=== PATIENT | male | born 1985 | race Hispanic/Latino ===

== ENCOUNTER 2020-02-04 03:45 | Emergency (ER) | payer OTHER ==
[~2020-02-04] VITALS: Ht 180.3 cm; Wt 136.1 kg
[2020-02-04 04:00] VITALS: BP 137/76
--- NOTE | 2020-02-04 04:10 | ER.PDOC ---
General Chief Complaint: Chest Pain-Cardiac Nature Stated Complaint: SOB Time seen by MD: 04:00 Source: patient Exam Limitations: no limitations History of Present Illness Initial Comments right sided chest pain for one day, patient states has some palpitations also. no hx of dvt or pe, no cad. no back or abd pain no tearing pain, no cough or titus. patient did say he fell at work two days ago but the pain started one day ago. Severity/Quality: mild, sharp Radiation: no radiation Activities at Onset: other Prior CP/Workup: No Prior Chest Pain Nitro Today/Relief: No Nitro Taken Today Aspirin Today: No Aspirin Today Associated Symptoms: denies symptoms Allergies: Coded Allergies: diphenhydramine (Verified Allergy, Unknown, 02/04/20) red dye (Verified Allergy, Unknown, 02/04/20) Past Medical History Surgical History: appendectomy Social History Alcohol Use: occassionally Drug Use: none Constitutional: denies chills, denies fever Respiratory: denies cough Cardiovascular: chest pain; denies palpitations Gastrointestinal: denies abdominal pain Genitourinary: denies dysuria, denies flank pain Musculoskeletal: denies neck pain Skin: denies rash Psychiatric/Neurological: denies headache, denies paresthesia Physical Exam General Appearance: No Apparent Distress, WD/WN HEENT: PERRL/EOMI Neck: Non-Tender, Full Range of Motion Respiratory: lungs clear, normal breath sounds Cardiovascular: Normal Peripheral Pulses, Regular Rate, Rhythm Gastrointestinal: Non Tender Extremities: Normal Range of Motion, Non-Tender 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, No Motor/Sensory Deficits, Alert, Normal Mood/Affect Skin: Normal Color Results/Orders Results/Orders Vital Signs Date Time Temp Pulse Resp B/P (MAP) Pulse Ox O2 Delivery O2 Flow Rate FiO2 02/04/20 04:00 98.2 97 16 97 02/04/20 04:00 98.2 97 16 EKG/XRAY/CT/US EKG: NSR, no ST T wave changes ER DEPART Departure Time of Disposition: 05:01 Disposition: 01 HOME, SELF-CARE Impression: Primary Impression: Chest pain Condition: Stable Patient Instructions: Chest Pain (Nonspecific) Referrals: PCP,UNKNOWN (PCP) PRIMARY CARE PROVIDER KELSEY CUMMINS MD Additional Instructions: return for any worsening symptoms Duration or Time Spent with Pa: 15 FARAZ VILLA MD Feb 04, 2020 04:10
[2020-02-04 04:19] LABS: BASOPHIL % 0.3 % (0.0-0.2); EOSINOPHIL # 0.1 10^3/uL (0.0-0.2); EOSINOPHIL % 0.6 % (0.0-5.0); LYMPHOCYTES # 2.71 10^3/uL1 (1.0-4.8); MONOCYTES # 0.7 10^3/uL (0.3-0.8); MONOCYTES % 6.5 % (5.0-12.0); NEUTROPHIL # 7.3 10^3/uL (1.8-7.7); NEUTROPHILS % 67.5 % (41.0-85.0); PLATELET COUNT 221 10^3/uL (150-400)
--- NOTE | 2020-02-04 04:40 | DIREP ---
PROCEDURE:CHEST 1 VIEW COMPARISON:None. INDICATIONS:chest pain FINDINGS: LUNGS/PLEURA:No significant pulmonary parenchymal abnormalities. No effusions. VASCULATURE:Normal. Unremarkable pulmonary vasculature. CARDIAC:Normal. No cardiac silhouette abnormality or cardiomegaly. MEDIASTINUM:Normal. No visible mass or adenopathy. BONES:Normal. No fracture or visible bony lesion. OTHER:Negative. CONCLUSION:Normal examination. Dictated by: Davian Alarcon M.D. on 02/04/2020 at 04:38 AM
[2020-02-04 04:41] LABS: ALANINE AMINOTRANSFERASE(ML) 53 U/L (12-78); ALKALINE PHOSPHATASE 118 U/L (50-136); ASPARTATE AMINO TRANSFERASE 19 U/L (0-35); CARBON DIOXIDE 27.9 mmol/L (20.0-32); GLUCOSE 99 mg/dL (70-110)
[2020-02-04 05:07] VITALS: BP 124/92
--- NOTE | 2020-02-04 06:44 | PCM.EKG ---
[facility] Test Date: 2020-02-04 Test Time: 04:07:17 Pat Name: JARED HELLER [id number]: Gender: M Chemical Dependency Attendant: LEISA : 1985 Requested By: FARAZ VILLA Order Number: [id number] Reading MD: Measurements Intervals [place] Rate: 79 P: 52 MT: 151 QRS: 77 QRSD: 84 T: 56 QT: 354 QTc: 406 Interpretive Statements Sinus rhythm No previous ECG available for comparison Please click the below link to view image of tracing.
== END 2020-02-04 05:10 | disposition home or self-care (01) ==
LOC: ER 03:45
DX: R07.9 Chest pain, unspecified (principal); R00.2 Palpitations; Z88.8 Allergy status to other drugs, medicaments and biological substances
CPT/HCPCS: 36415; 71045; 80053; 82550; 82553; 84484; 85025; 85379; 93005; 99285

== ENCOUNTER 2020-03-05 01:43 | Emergency (ER) | payer OTHER ==
[~2020-03-05] VITALS: Ht 180.3 cm; Wt 134.7 kg
[2020-03-05 01:58] VITALS: BP 145/73
--- NOTE | 2020-03-05 02:28 | ER.PDOC ---
General Chief Complaint: Requesting Medical Care Stated Complaint: LEG PAIN Time seen by MD: 02:23 Source: patient Exam Limitations: no limitations History of Present Illness Initial Comments Patient c/o sudden onset LLE pain tonight without injury. 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 No history of extended stasis recently or injury. Onset: just prior to arrival Recent Injury: No Context: concerned for possible DVT d/t history of same Where: home Severity: moderate Exacerbated By: walking movement Relieved By: rest Associated Symptoms: other (denies CP or SOB) Prior symptoms/Treatment: Similar symptoms previous (with DVT) Allergies: Coded Allergies: diphenhydramine (Verified Allergy, Unknown, 02/04/20) red dye (Verified Allergy, Unknown, 02/04/20) Past Medical History Medical History: other (DVT; denies history of clotting disorder) Surgical History: appendectomy Family History Significant Family History: no pertinent family hx (no familial history of clotting disorder) Social History Smoking: non-smoker Alcohol Use: occassionally Drug Use: none Review of Systems Constitutional: no symptoms reported EENTM: no symptoms reported Respiratory: no symptoms reported (denies SOB) Cardiovascular: no symptoms reported (denies CP) Gastrointestinal: no symptoms reported Genitourinary: no symptoms reported Musculoskeletal: see HPI (c/o LLE pain without history of injury) Skin: no symptoms reported Psychiatric/Neurological: no symptoms reported All Other Systems: Reviewed and Negative Physical Exam General Appearance: Alert, No Apparent Distress Lower Extremity: no pedal edema (no swelling, no pain on calf compression, no pain in calf on dorsiflexion of foot) Joint Exam: joints nml, nml ROM Vascular: no vascular compromise, pulses full/equal Neuro/Psych: sensation nml, motor nml, oriented x3 Skin: color nml, warm/dry, no rash Back/Neck: nml inspection EENT: eyes inspection nml Respiratory: no resp distress, breath sounds nml CVS: reg rate & rhythm, heart sounds nml Abdomen: non-tender, no organomegaly Results/Orders Results/Orders Orders - BROOKLYN ARREDONDO DO D-Dimer (03/05/20 02:27) Vital Signs Date Time Temp Pulse Resp B/P (MAP) Pulse Ox O2 Delivery O2 Flow Rate FiO2 03/05/20 03:08 97.9 77 16 129/77 (94) 95 Room Air 03/05/20 02:30 97.9 86 16 145/73 (97) 95 Room Air 03/05/20 01:58 97.9 86 16 145/73 (97) 95 Room Air 03/05/20 01:58 97.9 86 16 03/05/20 01:58 97.9 86 16 95 Laboratory Tests Test 03/05/20 02:43 D-Dimer 0.32 mg/L (0.19-0.49) Progress Progress Ddimer is WNL ER DEPART Departure Time of Disposition: 03:06 Disposition: 01 HOME, SELF-CARE Impression: Primary Impression: Leg pain, left Condition: Stable Referrals: PCP,UNKNOWN (PCP) PRIMARY CARE PROVIDER FARAZ WATSON MD Additional Instructions: Alternate Tylenol and Motrin per package instructions every 4 hours as needed for pain. Return to ER if symptoms worsen, chest pain, difficulty breathing, or for any emergent concerns. Follow up with doctor Watson next week for reevaluation. Duration or Time Spent with Pa: 15 min BROOKLYN ARREDONDO DO Mar 05, 2020 02:28
[2020-03-05 02:30] VITALS: BP 145/73
[2020-03-05 03:08] VITALS: BP 129/77
== END 2020-03-05 03:10 | disposition home or self-care (01) ==
LOC: ER 01:43
DX: M79.662 Pain in left lower leg (principal); Z86.718 Personal history of other venous thrombosis and embolism
CPT/HCPCS: 36415; 85379; 99283

== ENCOUNTER 2020-05-14 18:30 | Emergency (ER) | payer OTHER ==
[~2020-05-14] VITALS: Ht 180.3 cm; Wt 131.5 kg
[2020-05-14 18:52] VITALS: BP 145/105
[2020-05-14 19:23] VITALS: BP 127/74
[2020-05-14] MEDS ORDERED: MYLANTA ONE (19:52)
[2020-05-14] MEDS ORDERED: LIDOCAINE VISCOUS ONE (19:52)
[2020-05-14] MEDS: MYLANTA PO STA (19:56)
[2020-05-14] MEDS: LIDOCAINE VISCOUS MM STA (19:56)
[2020-05-14 20:13] LABS: BASOPHIL % 0.3 % (0.0-0.2); EOSINOPHIL % 0.3 % (0.0-5.0); LYMPHOCYTES # 2.11 10^3/uL1 (1.0-4.8); LYMPHOCYTES % 20.8 % (24.0-44.0); MEAN CORP HGB 27.4 pg (26-34); MONOCYTES # 0.7 10^3/uL (0.3-0.8); MONOCYTES % 6.5 % (5.0-12.0); NEUTROPHIL # 7.3 10^3/uL (1.8-7.7); PLATELET COUNT 195 10^3/uL (150-400); RED CELL DISTRIBUTION WIDTH 12.9 % (11.5-14.5)
[2020-05-14 20:35] LABS: UA COLOR YELLOW (YELLOW)
[2020-05-14 20:37] LABS: APPEARANCE,URINE SLIGHTLY CLOUDY (CLEAR); BILIRUBIN,URINE NEGATIVE (NEGATIVE)
[2020-05-14 20:38] LABS: UROBILINOGEN,URINE NEGATIVE (NEGATIVE)
[2020-05-14 20:44] LABS: CALCIUM 8.9 mg/dL (8.4-10.5); CARBON DIOXIDE 28.1 mmol/L (20.0-32)
[2020-05-14] MEDS ORDERED: BENTYL IM ONE (20:54)
--- NOTE | 2020-05-14 20:59 | NUR ---
[facility] EDP ORDERED BENTYL 20MG IM, PT ASKED TO WAIT A WHILE BEFORE TAKING THE SHOT TO SEE IF THE PAIN HAS STOPPED. PT DID NOT DENY MED AT THIS TIME, JUST ASKED TO HOLD OFF FOR A BIT. WILL RECHECK WITH PT IN 30 MIN.
--- NOTE | 2020-05-14 21:21 | ER.PDOC ---
General Chief Complaint: Abdomen Pain Stated Complaint: ABDOMINAL PAIN Time seen by MD: 19:30 Source: patient Exam Limitations: no limitations History of Present Illness Initial Comments Abdominal pain for 4 days, no nausea, vomiting or diarrhea. Timing/Duration: intermittent Severity/Quality: moderate, cramping 1 - pain Radiation: no radiation Associated Symptoms: denies symptoms Exacerbated by: nothing Relieved By: nothing Allergies: Coded Allergies: diphenhydramine (Verified Allergy, Unknown, 02/04/20) red dye (Verified Allergy, Unknown, 02/04/20) Vital Signs First Vital Signs Date Time Temp Pulse Resp B/P (MAP) Pulse Ox O2 Delivery O2 Flow Rate FiO2 05/14/20 18:52 98.5 90 18 145/105 (118) 98 Room Air Last Vital Signs Date Time Temp Pulse Resp B/P (MAP) Pulse Ox O2 Delivery O2 Flow Rate FiO2 05/14/20 19:23 98.5 98 18 127/74 (91) 96 Room Air Past Medical History Medical History: other Surgical History: appendectomy Family History Significant Family History: no pertinent family hx Social History Alcohol Use: rarely Drug Use: marijuana Constitutional: no symptoms reported EENTM: no symptoms reported Respiratory: no symptoms reported Cardiovascular: no symptoms reported Gastrointestinal: see HPI Genitourinary: no symptoms reported All Other Systems: Reviewed and Negative Physical Exam General Appearance: No Apparent Distress, WD/WN Neck: Non-Tender, Full Range of Motion, Supple, Normal Inspection Respiratory: chest non-tender, lungs clear, normal breath sounds, no respiratory distress, no accessory muscle use Cardiovascular: Normal Peripheral Pulses, Regular Rate, Rhythm, No Edema, No Gallop, No JVD, No Murmur Gastrointestinal: Normal Bowel Sounds, No Organomegaly, No Pulsatile Mass, Guarding, Tenderness (epigastric) Back: Normal Inspection, No CVA Tenderness, No Vertebral Tenderness Extremities: Normal Range of Motion, Non-Tender, Normal Inspection, No Pedal Edema, No Calf Tenderness, Normal Capillary Refill, Pelvis Stable 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, No Motor/Sensory Deficits, Alert, Normal Mood/Affect, Oriented x 3 Skin: Normal Color, Warm/Dry Lymphatic: No Adenopathy Results/Orders Results/Orders Orders - DYLAN ANDRES MD Cbc With Auto Diff (05/14/20 19:49) Comprehensive Metabolic Panel (05/14/20 19:49) Lipase (05/14/20 19:49) Helicobacter Pylori (05/14/20 19:49) Ct Abd/Pel With Iv Contrast (05/14/20 19:49) Urinalysis (05/14/20 19:49) Mag Hydrox/Aluminum Hyd/Simeth (Mylanta) (05/14/20 19:49) Lidocaine Hcl (Lidocaine Viscous) (05/14/20 19:49) Lidocaine Hcl (Lidocaine Viscous) (05/14/20 19:52) Mag Hydrox/Aluminum Hyd/Simeth (Mylanta) (05/14/20 19:52) Urine Culture (05/14/20 19:58) Dicyclomine Hcl (Bentyl) (05/14/20 20:54) Dicyclomine Hcl (Bentyl) (05/14/20 20:59) Vital Signs Date Time Temp Pulse Resp B/P (MAP) Pulse Ox O2 Delivery O2 Flow Rate FiO2 05/14/20 19:23 98.5 98 18 127/74 (91) 96 Room Air 05/14/20 18:52 98.5 90 18 98 05/14/20 18:52 98.5 90 18 05/14/20 18:52 98.5 90 18 145/105 (118) 98 Room Air Administered Medications Medications (Trade) Dose Ordered Sig/Sunitha Route PRN Reason Start Time Stop Time Status Last Admin Dose Admin Dicyclomine HCl (Bentyl) 20 mg STAT STAT IM 05/14/20 20:59 05/14/20 21:00 DC 05/14/20 22:15 20 MG Lidocaine HCl (Lidocaine Viscous) 10 ml STAT STAT MM 05/14/20 19:49 05/14/20 19:53 DC 05/14/20 19:56 10 ML Laboratory Tests Test 05/14/20 19:49 05/14/20 19:58 05/14/20 20:05 POC Stool Occult Blood NEGATIVE (NEGATIVE) Urine Collection Type CCMS Urine Color YELLOW (YELLOW) Urine Appearance SLIGHTLY CLOUDY (CLEAR) Urine Bilirubin NEGATIVE MG/DL (NEGATIVE) Urine Ketones TRACE (NEGATIVE) Urine Specific [place] 1.030 (1.005-1.035) Urine pH 5.5 (5.0-6.0) Urine Protein NEGATIVE (NEGATIVE) Urine Urobilinogen NEGATIVE (NEGATIVE) Urine Nitrate NEGATIVE (NEGATAIVE) Urine Leukocyte Esterase NEGATIVE (NEGATIVE) Urine Blood NEGATIVE (NEGATIVE) Urine RBC NONE SEEN RBC/HPF (NONE Urine WBC 0-2 WBC/HPF (0-2) Urine Squamous Epithelial Cells FEW #/HPF (FEW) Urine Renal Epithelial Cells NONE SEEN #/HPF (NONE Urine Bacteria RARE (NONE SEEN) Urine Glucose NORMAL (NEGATIVE) White Blood Count 10.2 10^3/uL (4.5-11.0) Red Blood Count 6.32 10^6/uL (4.50-5.90) H Hemoglobin 17.3 g/dL (13.9-16.3) H Hematocrit 51.4 % (37.0-53.0) Mean Corpuscular Volume 81.3 fL (78-100) Mean Corpuscular Hemoglobin 27.4 pg (26-34) Mean Corpuscular Hemoglobin Concent 33.7 g/dL (33-36.5) Red Cell Distribution Width 12.9 % (11.5-14.5) Platelet Count 195 10^3/uL (150-400) Mean Platelet Volume 9.3 fL (7.8-11.0) Neutrophils (%) (Auto) 72.0 % (41.0-85.0) Lymphocytes (%) (Auto) 20.8 % (24.0-44.0) L Monocytes (%) (Auto) 6.5 % (5.0-12.0) Neutrophils # (Auto) 7.3 10^3/uL (1.8-7.7) Lymphocytes # (Auto) 2.11 10^3/uL1 (1.0-4.8) Monocytes # (Auto) 0.7 10^3/uL (0.3-0.8) Absolute Immature Granulocyte (auto 0.01 10^3 u/L (0-2) Absolute Eosinophils (auto) 0.0 10^3/uL (0.0-0.2) Immature Granulocytes % 0.10 % (0.00-0.50) Eosinophils % 0.3 % (0.0-5.0) Basophils % 0.3 % (0.0-0.2) H Basophils # 0.0 10^3/uL (0.0-0.1) Sodium Level 138 mmol/L (132-145) Potassium Level 3.5 mmol/L (3.6-5.2) L Chloride Level 101.0 mmol/L (96-109) Carbon Dioxide Level 28.1 mmol/L (20.0-32) Anion Gap 12.4 Blood Urea Nitrogen 12 mg/dL (7-18) Creatinine 1.11 mg/dL (0.59-1.40) Estimated GFR () 92.3 (>/=60) Est GFR (CKD-EPI)(Non-Afr Bah[place]ian) 76.3 (>/=60) BUN/Creatinine Ratio 10.0 Glucose Level 103 mg/dL (70-110) Calcium Level 8.9 mg/dL (8.4-10.5) Total Bilirubin 0.7 mg/dL (0.2-1.0) Aspartate Amino Transferase (AST) 30 U/L (0-35) Alanine Aminotransferase (ALT) 78 U/L (12-78) Alkaline Phosphatase 138 U/L (50-136) H Total Protein 8.1 g/dL (6.4-8.2) Albumin 3.9 g/dL (3.4-5.0) Globulin 4.2 Albumin/Globulin Ratio 0.928 Lipase 148 U/L (114-286) Helicobacter pylori Screen NEGATIVE (NEGATIVE) Progress Progress CT abdomen/pelvis: Calcified gallstones versus gallbladder wall calcifications. No pericholecystic inflammatory changes. 2. Gastric antral wall thickening suspicious for gastritis. 3. Surgical clips at the cecal base suggest prior appendectomy. 4. Moderate hepatic steatosis. Labs are unremarkable. Reviewed both labs and CT with the patient. ER DEPART Departure Time of Disposition: 22:57 Disposition: 01 HOME, SELF-CARE Impression: Primary Impression: Cholelithiases Additional Impression: Acute gastritis Condition: Stable Referrals: PCP,UNKNOWN (PCP) PRIMARY CARE PROVIDER Additional Instructions: Tramadol Nexium F/U with your PCP in 2-3 days F/U with Dr. Dodson the Surgeon next week Return to ED if worsening symptoms or concerns Duration or Time Spent with Pa: 60 min Problem Qualifiers Primary Impression: Cholelithiases Cholelithiasis location: gallbladder Cholecystitis presence: without ch olecystitis Biliary obstruction: without biliary obstruction Qualified Codes: K80.20 - Calculus of gallbladder without cholecystitis without obstruction Additional Impression: Acute gastritis Gastritis type: unspecified gastritis Gastritis bleeding: without bleeding Qualified Codes: K29.00 - Acute gastritis without bleeding DYLAN ANDRES MD May 14, 2020 21:21
[2020-05-14 21:45] VITALS: BP 126/57
[2020-05-14] MEDS: BENTYL IM STA (22:15)
--- NOTE | 2020-05-14 22:32 | DIREP ---
PROCEDURE:CT ABDOMEN/PELVIS W/ CONTRAST COMPARISON:None. INDICATIONS:Epigastric pain TECHNIQUE:Axial images were created through the abdomen and pelvis with non-ionic intravenous contrast material. No oral contrast was administered. Sagittal and coronal reconstructions were performed from source images. FINDINGS: LUNG BASES:Normal. No visible pulmonary or pleural disease. LIVER:Moderate hepatic steatosis. BILIARY:Mildly calcified gallstones in the dependent portion the gallbladder versus gallbladder wall calcifications. No pericholecystic inflammatory changes. PANCREAS:Normal. No lesion, fluid collection, ductal dilatation, or atrophy. SPLEEN:Normal. No enlargement or focal lesion. ADRENALS:Normal. No mass or enlargement. URINARY TRACT:Normal. No focal lesions or hydronephrosis. AORTA/VASCULAR:Normal. No aneurysm. RETROPERITONEUM:Normal. No mass or adenopathy. BOWEL/MESENTERY:Surgical clips at the cecal base suggest prior appendectomy. No intestinal obstruction, free fluid, free air, or mesenteric inflammatory changes. Suspect gastric antral wall thickening suspicious for gastritis. ABDOMINAL WALL:Normal. No mass or hernia. PELVIC ORGANS:Normal. No visible mass. Pelvic organs appropriate for patient age. BONES:Normal for age. No bony lesion or acute fracture. OTHER:Negative. CONCLUSION: 1. Calcified gallstones versus gallbladder wall calcifications. No pericholecystic inflammatory changes. 2. Gastric antral wall thickening suspicious for gastritis. 3. Surgical clips at the cecal base suggest prior appendectomy. 4. Moderate hepatic steatosis. Dictated by: Brian Sneed MD on 05/14/2020 at 10:26 PM
[2020-05-14 22:40] VITALS: BP 117/72
== END 2020-05-14 23:05 | disposition home or self-care (01) ==
LOC: ER 18:30
DX: K80.20 Calculus of gallbladder without cholecystitis without obstruction (principal); K29.00 Acute gastritis without bleeding; F12.90 Cannabis use, unspecified, uncomplicated
CPT/HCPCS: 36415; 74177; 80053; 81000; 82272; 83690; 85025; 86677; 87086; 96372; 99285; J3490; Q9965; J0500